=== PATIENT | female | born 1990 | race Caucasian/White ===

== ENCOUNTER 2016-11-16 17:56 | Observation (INO) | payer OTHER ==
[2016-11-16] MEDS ORDERED: PREN-134 PO (18:05)
[2016-11-16 19:03] VITALS: BP 112/62
== END 2016-11-16 20:10 | disposition home or self-care (01) ==
LOC: 4S 17:56
PROVIDERS: ADMIT Obstetrics & Gynecology; ATTEND Obstetrics & Gynecology
DX: O76 Abnormality in fetal heart rate and rhythm complicating labor and delivery (principal); Z3A.37 37 weeks gestation of pregnancy
CPT/HCPCS: 59025; G0378

== ENCOUNTER 2016-12-02 11:45 | Observation (INO) | payer OTHER ==
[~2016-12-02] VITALS: Ht 165.1 cm; Wt 98.0 kg
[~2016-12-02 11:45] MED LIST: PREN-134 PO
[2016-12-02 13:00] VITALS: BP 122/64
== END 2016-12-02 13:35 | disposition home or self-care (01) ==
LOC: 4S 11:45
PROVIDERS: ADMIT Obstetrics & Gynecology; ATTEND Obstetrics & Gynecology
DX: O62.9 Abnormality of forces of labor, unspecified (principal); R10.31 Right lower quadrant pain; Z3A.39 39 weeks gestation of pregnancy
CPT/HCPCS: 59025; G0378

== ENCOUNTER 2016-12-06 19:13 | Observation (INO) | payer OTHER ==
[~2016-12-06] VITALS: Ht 165.1 cm; Wt 97.1 kg
[2016-12-06 19:40] VITALS: BP 129/80
[2016-12-09] MEDS ORDERED: IBUP-2070 PO (10:37)
[2016-12-09] MEDS ORDERED: DSS100 PO (10:38)
== END 2016-12-06 21:00 | disposition home or self-care (01) ==
LOC: 4S 19:13
PROVIDERS: ADMIT Obstetrics & Gynecology; ATTEND Obstetrics & Gynecology
DX: O62.9 Abnormality of forces of labor, unspecified (principal); O48.0 Post-term pregnancy; O26.893 Other specified pregnancy related conditions, third trimester; R10.30 Lower abdominal pain, unspecified; Z3A.40 40 weeks gestation of pregnancy
CPT/HCPCS: 59025; G0378